=== PATIENT | female | born 1950 | race Caucasian/White ===

== ENCOUNTER → 2016-09-27 | Outpatient (CLI) | payer MEDICARE, BC | LOC: MC.RAD 12:26 | DX: Z12.31 Encounter for screening mammogram for malignant neoplasm of breast (principal) ==

== ENCOUNTER 2023-05-23 10:37 | Outpatient (CLI) | payer MEDICARE, BC ==
[~2023-05-23] VITALS: Ht 152.4 cm; Wt 63.3 kg
[~2023-05-23 10:37] MED LIST: COMPLETE SENIOR1 TA1 PO; HCTZ 25MG TAB25 MG PO; PRESERVISION1 SGL PO; RYTARY1 CE1 PO; SYNTHROID 0.0.025 MG PO; VITAMIN D31000 I1 PO; ZYRTEC 10MG10 MG PO
[2023-05-23 10:56] VITALS: BP 138/85; PULSE 81; TEMP 98.2
== END 2023-05-23 11:35 | disposition home or self-care (01) ==
LOC: EUO 10:37
DX: M81.0 Age-related osteoporosis without current pathological fracture (principal)
CPT/HCPCS: J3489

== ENCOUNTER → 2023-12-23 | Outpatient (CLI) | payer MEDICARE, BC | LOC: COL.RAD 12:23 | DX: K22.4 Dyskinesia of esophagus (principal) ==